=== PATIENT | female | born 1970 | race African-American/Black ===

== ENCOUNTER → 2023-01-27 | Outpatient (CLI) | payer OTHER ==
[2023-01-27 08:43] LABS: African American GFR (CKD) 74 (>60 ml/min/1.73 sqM); Blood Urea Nitrogen 9 mg/dL (7-17); Non-African American GFR(CKD) 64 (>60 ml/min/1.73 sqM)
--- NOTE | 2023-01-28 18:16 | CT ---
EXAMINATION TYPE: CT ChestAbdPelvis w con DATE OF EXAM: 01/27/2023 INDICATION: breast ca COMPARISON: None CT DLP: 667.3 mGycm CONTRAST: Performed with Oral Contrast and with IV Contrast, patient injected with 100 mL of Isovue 300. TECHNIQUE: Axial images at 5 mm thick sections. Reconstructed images in the coronal plane. Delayed images through the kidneys. FINDINGS: CT CHEST: Thyroid is heterogenous. Consider ultrasound for additional evaluation.. There is an area of pneumonitis in the posterior right upper lung field. Short-term follow-up in 3-6 months is recommended. Series 5 image 14. An additional area of pneumonitis is in the right midlung. Series 5 image 25. No enlarged mediastinal or hilar adenopathy is evident. The ascending aorta diameter at the level of the main pulmonary artery is 2.9 cm. The main pulmonary artery diameter at the bifurcation is 2.[address] ABDOMEN: Liver: There is a 1.1 cm hypodensity within the posterior right upper lobe the liver could be a small cyst measuring -5 Hounsfield units. There is a hyperdensity within the left lobe liver. Series 4 cynthia ge 32 Spleen: Normal Pancreas: Normal Adrenal glands: The adrenal glands are normal. Gallbladder: Normal Kidneys: No masses are evident. No hydronephrosis is present. No cysts are present. Delayed images were obtained through the kidneys which remain unremarkable. Aorta: Normal Inferior vena cava: Normal. CT PELVIS: Loops of bowel within the abdomen and pelvis are normal. There are loops of bowel which are incom pletely distended or lack oral contrast limiting their evaluation. Appendix: Normal and contrast filled as visualized. Urinary bladder: Normal. Genitourinary structures: Uterus appears normal. A large left ovarian cyst measuring 5.9 x 5.3 cm is present. Osseous structures: No suspicious lytic or sclerotic lesions. IMPRESSIONS: 1. Heterogenous thyroid. Recommend ultrasound for additional evaluation. 2. Couple areas of pneumonitis within the right lung. Short-term follow-up CT chest recommended in 3- 6 months. 3. Left ovarian cyst. Follow-up is recommended
== END | disposition home or self-care (01) ==
LOC: RADCTMAIN 07:55
PROVIDERS: ATTEND Internal Medicine Hematology & Oncology
DX: C50.812 Malignant neoplasm of overlapping sites of left female breast (principal); J18.9 Pneumonia, unspecified organism; N83.202 Unspecified ovarian cyst, left side
CPT/HCPCS: 82565; 84520; 71260; 74177; 36415; Q9967

== ENCOUNTER → 2023-05-07 | Outpatient (CLI) | payer OTHER ==
[2023-05-07 13:08] LABS: African American GFR (CKD) 84 (>60 ml/min/1.73 sqM); Blood Urea Nitrogen 7 mg/dL (7-17); Non-African American GFR(CKD) 73 (>60 ml/min/1.73 sqM)
--- NOTE | 2023-05-07 22:24 | CT ---
EXAMINATION TYPE: CT ChestAbdPelvis w con DATE OF EXAM: 05/07/2023 COMPARISON: Prior CT January 27, 2023 HISTORY: f/u breast ca, obs for mets CT DLP: 746.30 mGycm. Automated Exposure Control for Dose Reduction was Utilized. CONTRAST: CT scan of the thorax, abdomen and pelvis is performed with oral and with IV Contrast, patient inject ed with 100ml mL of Isovue 300. FINDINGS: LUNGS: Focus of groundglass opacity posterior aspect right upper lobe near axial image 16 is redemons trated. Second focal area of groundglass opacity inferior to this right mid lung is resolved. There is now focal pleural thickening along the anterior aspect of the major fissure and focal atelectasis and/or nodular consolidation posterior superior right lower lobe axial image 30. There is no pleural effusion or pneumothorax seen. The tracheobronchial tree remains patent. MEDIASTINUM: There are no greater than 1 cm hilar or mediastinal lymph nodes. No cardiomegaly or pe ricardial effusion is seen. Heterogeneous nodular thyroid gland redemonstrated. Thyroid ultrasound f ollow-up can be performed to further evaluate if desired. OTHER: Stable right-sided Mediport catheter. Bilateral total mastectomy changes again seen. Surgical clips in the left axilla redemonstrated. LIVER/GB: Stable 1.1 cm round hypodense lesion posterior right hepatic lobe axial image 44 favoring b enign thin-walled cyst. PANCREAS: No significant abnormality is seen. SPLEEN: No significant abnormality is seen. ADRENALS: No significant abnormality is seen. KIDNEYS: No significant abnormality is seen. BOWEL: Small sized hiatal hernia. Oral contrast reaches level of the cecum. No abnormal small or larg e bowel dilatation is seen. GENITAL ORGANS: Anteverted uterus. Stable 5.0 x 4.9 cm thin-walled cyst or cystic lesion in the left ovary axial image 110. This can be better evaluated and characterized with pelvic ultrasound if dena ed. Multiple scattered bilateral pelvic phleboliths redemonstrated. LYMPH NODES: No greater than 1cm abdominal or pelvic lymph nodes are appreciated. OSSEOUS STRUCTURES: No significant abnormality is seen. OTHER: Small sized fat-containing umbilical hernia. IMPRESSION: No suspicious new or enlarging mass or adenopathy to suggest metastatic neoplasm.
== END | disposition home or self-care (01) ==
LOC: RADCTMAIN 12:28
PROVIDERS: ATTEND Internal Medicine Hematology & Oncology
DX: C50.812 Malignant neoplasm of overlapping sites of left female breast (principal); D24.1 Benign neoplasm of right breast; D70.2 Other drug-induced agranulocytosis; Z17.0 Estrogen receptor positive status [ER+]
CPT/HCPCS: 82565; 84520; 71260; 74177; 36415; Q9967

== ENCOUNTER → 2023-08-05 | Outpatient (CLI) | payer OTHER ==
--- NOTE | 2023-08-05 18:33 | CT ---
EXAMINATION TYPE: CT ChestAbdPelvis w con CT DLP: 731.90 mGycm, Automated exposure control for dose reduction was used. DATE OF EXAM: 08/05/2023 3:19 PM COMPARISON: CT chest abdomen pelvis 05/07/2023 and 01/27/2023 CLINICAL INDICATION:Female, 53 years old with history of C50.812 BREAST CANCER; [facility], F/U BREAST CA OB S FOR METS Technique: CT imaging of the chest, abdomen, and pelvis obtained with IV and oral contrast. Axial, co jameel and sagittal reconstructions were obtained. Delayed imaging through the abdomen/kidneys was als o obtained. Contrast used:80ML mL of Isovue 300 with IV Contrast, Oral contrast used: with Oral Contrast Findings: CHEST: LUNGS/ PLEURA: In the posterior right middle lobe laterally along the minor fissure, there is a pleural-based nodula r density measuring 2.5 x 1.4 cm image 37 series 5, which had been 1.2 x 1.1 cm before. Additionally, this previously did not cross the minor fissure, but now does. There is mild thickening along the fi ssure extending distally noted as well. In the right upper lobe there is a 0.8 x 0.5 cm vague groundg lass nodular focus image 14, stable. A subpleural small linear focus in the anterior right lung image 30 is smaller/less conspicuous than before and does not appear nodular. There had been a pleural-bas ed semicircular nodular density in the lateral right upper lobe along the upper end of the oblique fi ssure,1.6 x 0.8 cm on prior study image 26, which has essentially resolved as there is minimal nonmea surable density in this area, current study image 26. Also just cranial to this on image 24, there zhong d been a small nodular subpleural density which is no longer seen. In the right lower lobe posteriorl y, there had been a subpleural nodular groundglass focus 1.1 x 0.8 cm on image 30, which has now reso lved on the same image. However just anterior and medial to this there is a 0.4 cm nodule image 30, w hich is not clearly present on the prior exam. No sizable concerning nodules are seen in the left juanita g, which appears stable by comparison. A tiny calcified granuloma in the left upper lobe is stable. No acute consolidation, pleural effusion, or pneumothorax. AIRWAYS: Patent and unremarkable. HEART: Upper limits of normal in size. No significant pericardial effusion or nodularity. No signific ant coronary artery calcifications. MEDIASTINUM: Stable appearance, no enlarged mediastinal nodes. No enlarged hilar nodes. Moderate size hiatal hernia again seen. VASCULATURE: Aorta shows minimal atherosclerotic disease without evidence of aneurysm or dissection flap. Grossly preserved enhancement of the pulmonary arteries in the limits of the exam. Pulmonary tr unk is nonenlarged, at 2.6 cm. MUSCULOSKELETAL: Osseous structures appear stable without evidence of an acute process or lytic/blast ic lesion. Mild degenerative changes throughout the spine. Mild remote appearing deformity of the korin cyx likely from remote injury. SOFT TISSUES/LYMPH NODES: Stable appearance of the chest wall, with changes of bilateral mastectomy. No evidence of locally recurrent mass or axillary lymphadenopathy. Surgical clips in the left axilla redemonstrated with presumed associated scarring which is stable. Right chest Mediport again seen in the right anterior chest with its catheter tip in good position in the SVC above the right atrium. LOWER NECK: Thyroid shows a grossly stable appearance appearance, heterogeneous with a few areas of h ypodense nodularity; this could be followed up sonographically. No acute or concerning abnormality. ABDOMEN: ABDOMEN LIVER: Stable appearance of a 1.2 x 1.1 cm rounded hypodense lesion in the posterior right hepatic do me subcapsular, image 45 series 4. This again does not fill in on delayed imaging. Stable tiny focus of brisk contrast enhancement in the lateral segment left hepatic lobe image 54, likely flash filling hemangioma or vascular shunt. Stable tiny hypodensity near the inferior tip of the right hepatic lob e image 67. No new or enlarging hepatic lesions. GALLBLADDER AND BILE DUCTS: Unremarkable. PANCREAS: Unremarkable. SPLEEN: Unremarkable. ADRENAL GLANDS: Stable, mildly thickened without evidence of mass.. KIDNEYS AND URETERS: Kidneys enhance symmetrically, without evidence of mass. Symmetric contrast excr etion without hydronephrosis shown. PELVIS BLADDER: Unremarkable. REPRODUCTIVE: Uterus appears grossly stable by CT. Circumscribed left adnexal low-attenuation/cystic lesion is stable, 5 x 4.9 cm image 104. Calcifications in the right adnexal region are again noted. N umerous pelvic phleboliths are again seen. ABDOMEN & PELVIS STOMACH AND BOWEL: Contrast traverses the stomach and small bowel loops without evidence of obstructi on. There is wall thickening versus nondistention at the GE junction and proximal stomach, better def ined due to the presence of the contrast but the appearance is similar to priors. The appendix is nor mal. Contrast mixed with stool in the colon, with no discrete focal abnormality seen. Scattered diver ticula are apparently present without evidence of diverticulitis. PERITONEUM: No evidence of pneumoperitoneum or free fluid. No intraperitoneal nodule or mass is seen. VASCULATURE: Minimal atherosclerotic disease is present, aorta and major branches are otherwise unrem arkable without evidence of AAA. MUSCULOSKELETAL: Osseous structures appear stable without evidence of an acute process or lytic/blast ic lesion. Mild degenerative changes throughout the spine. Mild remote appearing deformity of the korin cyx likely from remote injury. LYMPH NODES: No gross evidence for lymphadenopathy. SOFT TISSUE/ABDOMINAL WALL: Tiny fat-containing umbilical hernia. No evidence of body wall mass. IMPRESSION: Chest: 1. Interval enlargement of a pleural-based nodular density in the lateral right middle lobe measurin g 2.5 x 1.4 CM. The finding is concerning for neoplasm, metastatic or possibly primary. Recommend PET /CT and/or biopsy for tissue diagnosis. 2. Other nodular densities previously seen in the right lung have either resolved or almost resolved , and one subcentimeter focus remains stable. 3. Near the region of one of the resolved nodules, there is a 0.4 cm right lung nodule now seen, not clearly present before. This be reassessed on follow-up to exclude early metastasis. 4. Otherwise stable appearance of the chest, without evidence of recurrent mass or adenopathy. Abdomen/pelvis: 1. Continued stable hepatic lesions, most likely benign. 2. Moderate sized hiatal hernia is stable. There is wall thickening versus nondistention at the GE j unction and proximal stomach, nonspecific. Likely considerations include inflammatory thickening and neoplasia. Upper endoscopy may be of benefit. 3. Stable circumscribed 5 cm left adnexal low-attenuation/cystic lesion, likely related to the ovary . Appearance favors benignity. This could be further evaluated and followed up with ultrasound. 4. Otherwise stable appearance, without evidence of abdominal pelvic metastatic disease.
== END | disposition home or self-care (01) ==
LOC: RADCTMAIN 13:13
PROVIDERS: ATTEND Internal Medicine Hematology & Oncology
DX: C50.812 Malignant neoplasm of overlapping sites of left female breast (principal); K44.9 Diaphragmatic hernia without obstruction or gangrene; K76.9 Liver disease, unspecified
CPT/HCPCS: 71260; 74177

== ENCOUNTER → 2023-09-11 | Outpatient (CLI) | payer OTHER ==
--- NOTE | 2023-09-11 12:00 | PE ---
EXAMINATION TYPE: PET CT fusion skull to thigh DATE OF EXAM: 09/11/2023 CLINICAL INDICATION:Female, 53 years old with history of C5.812 BREAST CA; TECHNIQUE: Following the intravenous administration of 9.9 mCi of F-18 FDG, whole body images are p erformed from the skull base to the midthigh. Images are reviewed on the computer in the coronal, ax ial, and sagittal planes. Reconstructed rotating images are created on independent workstation and r eviewed on the computer. A non-contrast CT is performed in conjunction with the PET scan. Glucose l evel 90 mg/dL CT DLP: 327 mGycm, Automated exposure control for dose reduction was used. COMPARISON: CT 08/05/2023, PET/CT None, FINDINGS: Mediastinal SUV mean is 2.9. Hepatic parenchyma SUV mean is 2.6. SKULL BASE AND NECK: No suspicious radiotracer activity. CHEST, MEDIASTINUM, AND HILAR REGION: * Pleural thickening along the right lateral chest max SUV 2.7 scattered patchy uptake within the ri ght lung nodular like areas measuring by 17 x 9 mm it is slightly 25 x 14 mm with Max SUV 2.8. * The breasts are surgically absent. Postsurgical changes left axilla. No suspicious uptake within t he left breast or left axilla. ABDOMEN AND PELVIS: No suspicious radiotracer activity. MUSCULOSKELETAL STRUCTURES: * No suspicious radiotracer activity * Focal uptake within the right paracolic max SUV 4.6 square for recent injection. OTHER CT: Arthros is course of the carotid bifurcation. Right central venous catheter tip terminates in superior vena c ana. Fat-containing umbilical hernia. Left ovarian cyst measuring up to 5.4 x 4.4 cm. Multiple pelvic fullness. IMPRESSION: 1. Recent on the right lateral peripheral pleural thickening FDG activity near background levels. 2. New right lower lobe nodular densities of mild FDG activity. Findings currently favor infectious/ inflammatory process. Follow-up CT chest in 3 months to ensure resolution is recommended. 3. No additional abnormal FDG activity visualized
== END | disposition home or self-care (01) ==
LOC: RADPETMAIN 08:16
PROVIDERS: ATTEND Internal Medicine Hematology & Oncology
DX: J98.4 Other disorders of lung (principal); C50.812 Malignant neoplasm of overlapping sites of left female breast
CPT/HCPCS: 78815; A9552

== ENCOUNTER → 2023-10-30 | Outpatient (CLI) | payer OTHER ==
[2023-10-30] MEDS: LEUPROLIDE ACET 11.25MG SYRGKIT IM NR (12:59)
[2023-10-30 13:29] VITALS: BP 115/72; PULSE 103; RESP 14; TEMP 98.2
== END ==
LOC: PROCWHC3 12:43 → EDSTATUS 13:00
PROVIDERS: ATTEND Internal Medicine Hematology & Oncology
DX: C50.812 Malignant neoplasm of overlapping sites of left female breast (principal)
CPT/HCPCS: 96402; J1950

== ENCOUNTER → 2024-01-29 | Outpatient (CLI) | payer MEDICARE, OTHER ==
[2024-01-29] MEDS: LEUPROLIDE ACET 11.25MG SYRGKIT IM NR (13:22)
[2024-01-29] MEDS: CYANOCOBALAMIN 1,000 MCG/ML 1 ML VIAL SQ NR (13:22)
[2024-01-30 12:54] VITALS: BP 101/68; PULSE 126; RESP 16; TEMP 98
== END ==
LOC: PROCWHC3 12:56
PROVIDERS: ATTEND Internal Medicine Hematology & Oncology
DX: C50.812 Malignant neoplasm of overlapping sites of left female breast (principal); D63.0 Anemia in neoplastic disease
CPT/HCPCS: 96372; 96402; J3420; J1950

== ENCOUNTER → 2024-11-12 | Outpatient (CLI) | payer MEDICARE ==
[2024-11-12 18:15] LABS: Basophils # (A) 0.03 X 10*3/uL (0.00-0.10); Basophils % (A) 0.5 %; Eosinophils # (A) 0.08 X 10*3/uL (0.04-0.35); Eosinophils % (A) 1.4 %; HCT 29.9 % (37.2-46.3); HGB 9.6 g/dL (12.0-15.0); Lymphocytes # (A) 1.28 X 10*3/uL (0.90-5.00); Lymphocytes % (A) 22.8 %; MCH 28.7 pg (27.0-32.0); MCHC 32.1 g/dL (32.0-37.0); MCV 89.3 FL (80.0-97.0); Mean Platelet Volume 10.6 FL (9.5-12.2); Monocytes # (A) 0.65 X 10*3/uL (0.20-1.00); Monocytes % (A) 11.6 %; NRBC Per 100 WBC 0 X 10*3/uL (0.00-0.01); Neutrophils # (A) 3.56 X 10*3/uL (1.80-7.70); Neutrophils % (A) 63.3 %; Platelet Count 237 X 10*3/uL (140-440); RBC 3.35 X 10*6/uL (4.10-5.20); RDW 17.4 % (11.5-14.5); WBC 5.62 X 10*3/uL (4.50-10.00)
== END | disposition home or self-care (01) ==
LOC: LABPAT 10:54
PROVIDERS: ATTEND Obstetrics & Gynecology
DX: Z01.818 Encounter for other preprocedural examination (principal); I51.89 Other ill-defined heart diseases; R94.31 Abnormal electrocardiogram [ECG] [EKG]
CPT/HCPCS: 85025; 93005

== ENCOUNTER 2024-12-09 09:00 | Day surgery (SDC) | payer MEDICARE ==
[~2024-12-09 09:00] MED LIST: HYDROmorphone 0.5 MG/0.5 ML SYRINGE IVP PRN; LIDOCAINE 1% (10MG/ML) FOR IV START INTRADERMA PRN; MIDAZOLAM 2 MG/2 ML VIAL IV PRN; Pre Op ABX Message 1 EACH MISC MISCELLANE ONE; fentaNYL (PF) 50 MCG/ML 2 ML AMP IVP PRN
[2024-12-09] MEDS: IV FLUID CONTINUATION 1,000 ML IV ONE (09:48)
[2024-12-09] MEDS: LACTATED RINGERS 1,000 ML IV SCH (10:08)
[2024-12-09] MEDS: ONDANSETRON 4 MG/2 ML VIAL IVP ONE (10:11)
[2024-12-09] MEDS: DEXAMETHASONE SOD PHOSPHATE 4 MG/ML 1 ML VIAL IV ONE (10:11)
[2024-12-09 10:23] LABS: Basophils # (A) 0.03 10*3/uL (0.00-0.10); Basophils % (A) 0.5 %; Eosinophils # (A) 0.22 10*3/uL (0.04-0.35); HCT 29.9 % (37.2-46.3); HGB 10.2 g/dL (12.0-15.0); Lymphocytes # (A) 1.01 10*3/uL (0.90-5.00); Lymphocytes % (A) 18.2 %; MCH 29.1 pg (27.0-32.0); MCHC 34.1 g/dL (32.0-37.0); MCV 85.2 fL (80.0-97.0); Mean Platelet Volume 10.2 fL (9.5-12.2); Monocytes # (A) 0.46 10*3/uL (0.20-1.00); Monocytes % (A) 8.3 %; Neutrophils # (A) 3.79 10*3/uL (1.80-7.70); Neutrophils % (A) 68.5 %; Platelet Count 210 10*3/uL (140-440); RBC 3.51 10*6/uL (4.10-5.20); RDW 15.7 % (11.5-14.5); WBC 5.54 10*3/uL (4.50-10.00)
[2024-12-09] MEDS ORDERED: PROPOFOL 10 MG/ML 20 ML VIAL IV ONE (11:17)
[2024-12-09] MEDS ORDERED: MIDAZOLAM 2 MG/2 ML VIAL ONE (11:17)
[2024-12-09] MEDS ORDERED: fentaNYL (PF) 50 MCG/ML 2 ML AMP ONE (11:17)
[2024-12-09] MEDS ORDERED: ACETAMINOPHEN IV (For NPO) 1,000 MG/100 ML VIAL ONE (11:17)
[2024-12-09] MEDS ORDERED: HYDROmorphone (PF) 1 MG/ML ONE (11:17)
[2024-12-09] MEDS ORDERED: LIDOCAINE 1% INJ 10MG/ML (20 ML MDV) ONE (11:17)
[2024-12-09] MEDS ORDERED: NEOSTIGMINE 1 MG/ML 10 ML VIAL ONE (11:17)
[2024-12-09] MEDS ORDERED: GLYCOPYRROLATE 0.2 MG/ML 2 ML VIAL ONE (11:17)
[2024-12-09] MEDS ORDERED: SUCCINYLCHOLINE CHLORIDE 200 MG/10 ML VIAL IV ONE (11:17)
[2024-12-09] MEDS ORDERED: ROCURONIUM 10 MG/ML (5 ML VIAL) IV ONE (11:17)
[2024-12-09] MEDS: BUPIVACAINE (PF) 0.25% 30 ML VIAL SQ ONE ×2 (11:31→11:53)
--- NOTE | 2024-12-09 11:55 | P.PCN ---
Date of Procedure: 12/09/24 Preoperative Diagnosis: 1. History of Breast Cancer 2. Risk Reducing Surgery Postoperative Diagnosis: Same plus left paratubal cyst Procedure(s) Performed: Laparoscopic Bilateral Salpino-Oophorectomy Implants: None Anesthesia: WILLI Surgeon: Raisa Richardson Estimated Blood Loss (ml): 10 IV fluids (ml): 500 Urine output (ml): 300 Pathology: other (bilateral fallopian tubes and ovaries) Condition: stable Disposition: same day Indications for Procedure: Ms. Ding is a 54 year old female with a history of breast cancer. Her medical oncologist has recommened BSO for risk reduction. Risks, benefits, and alternatives to laparosopic bilateral salpingoophorectmy are discussed with the patient including risk of bleeding, infection, damage to surrounding structures, and post-operative VTE. The patient understands these risks and desires to proceed with surgery as discussed. All questions are answered. Operative Findings: Normal appearing pelvis. Uterus is enlarged with a large anterior/fundal fibroid. Bilateral ovaries are unremarkable. Left fallopian tube with a 2-3 centimeter simple paratubal cyst Description of Procedure: Patient was taken to the OR with IV fluid running and pneumatic compression stockings on both legs. General anesthesia was obtained without difficulty. The patient was placed in the dorsal lithotomy position with Ranulfo-type stirrups with knees bent at 30 degree angles. Examination under anesthesia revealed a normal-sized, anteverted uterus. The patient as prepared and draped. The bladder was emptied. A speculum was placed into the vagina. The anterior lip of the cervix was grasped with a single-toothed tenaculum. A uterine manipulator was introduced. A horizontal skin incision was made at the umbilical fold. The periumbilical skin was manually elevated. The Veress needle was introduced into the peritoneal cavity at a straight angle without difficulty. A saline drop test was performed to validate intraperitoneal placement. The pneumoperitoneum was established with CO2 gas to a pressure of 15mmHg. A 5mm trocar was inserted into the abdomen under direct laparoscopic visualization. Intraabdominal survey revealed lack of any visceral or vascular injury. The pelvic and abdominal anatomy was noted as above. Two additional laparoscopic assit ports were placed in the right and left lower quadrants. A An Grasper was used to peanut picker the fimbriated end of the left fallopian tube. The LigaSure device was used to seal and ligate the left IP ligament and the fallopian tube sequentially to the level of the uterine cornua. This process was repeated on the right side. Excellent hemostasis was noted at the end of the case. Bilateral specimens were placed in a specimen bag and removed from the left lower quadrant port. The patient tolerated the procedure well. All instruments were removed from the abdomen and vagina, and all counts were correct times two. All incisions were closed with 4-0 Vicryl and skin glue. The patient was taken to the recovery room in stable condition.the recovery room in stable condition.
[2024-12-09 12:22] VITALS: TEMP 97.8
[2024-12-09 13:01] VITALS: RESP 16
[2024-12-09 13:54] VITALS: BP 164/92; PULSE 78
== END 2024-12-09 14:19 | disposition home or self-care (01) ==
LOC: OR 09:00
PROVIDERS: ATTEND Obstetrics & Gynecology
DX: N83.202 Unspecified ovarian cyst, left side (principal); N83.201 Unspecified ovarian cyst, right side; N73.6 Female pelvic peritoneal adhesions (postinfective); N83.8 Other noninflammatory disorders of ovary, fallopian tube and broad ligament; Z85.3 Personal history of malignant neoplasm of breast; Z98.890 Other specified postprocedural states
CPT/HCPCS: 58661; 81025; 85025; 88302; J2250; J0330; J1100; J2710; J2405; J2003; J3010; J1171; J0131; J2704; J0665; J1596